=== PATIENT | female | born 1985 ===

== ENCOUNTER 2022-07-12 03:26 | Emergency (ER) | payer MEDICAID ==
[~2022-07-12] VITALS: Ht 170.2 cm; Wt 52.3 kg
[2022-07-12 03:53] VITALS: BP 126/79
--- NOTE | 2022-07-12 06:44 | NUR ---
MARTINA [phone] (SISTER) PLEASE CALL WITH UPDATES
== END 2022-07-12 07:48 | disposition left against medical advice (07) ==
LOC: ER 03:28
DX: H92.02 Otalgia, left ear (principal); R10.9 Unspecified abdominal pain; Z53.21 Procedure and treatment not carried out due to patient leaving prior to being seen by health care provider